=== PATIENT | male | born 1945 | race African-American/Black ===

== ENCOUNTER 2019-03-20 20:12 | Observation (INO) | payer BC, OTHER ==
[~2019-03-20] VITALS: Ht 185.4 cm; Wt 92.0 kg
[~2019-03-20 20:12] MED LIST: AMLO-147 PO; ASPI-535 PO; CANA100T PO; CARV25TA79 PO; HYDR-3601 PO; HYDR12.58 PO; LIPITOR; LISI40TA3 PO; LISINOPRIL; PIOG15TA67 PO; SIMV40TA2 PO; [UNRECOGNIZED DRUG - REMARK]
[2019-03-20] MEDS ORDERED: SOD CHLORIDE 0.9% 1,000 ML IV STA (20:50)
[2019-03-20] MEDS ORDERED: KETOROLAC 15 MG INJ IV STA (20:50)
--- NOTE | 2019-03-20 20:52 | ERD ---
ER Documentation Chief Complaint Chief Complaint BILATERAL PAIN; NO KNOWN INJ X5DAYS HPI 73-year-old man with a history of CAD status post CABG many years ago presents with exertional upper back pain and dyspnea for the last 3 days. He states he has no pain in the chest and no pain with upper extremity movement or when he is laying down, pain only precipitated with exertion. He denies fevers or chills, no cough, no headache or blurry vision. Patient states he used a "handful" of aspirin today due to the pain. ROS All systems reviewed and are negative except as per history of present illness. Medications Home Meds Reported Medications [Lipitor] No Conflict Check 07/25/09 [Unk Antidiagetic] No Conflict Check 07/25/09 [Lisinopril] No Conflict Check 07/25/09 Allergies Allergies: Coded Allergies: No Known Allergy (Verified Allergy, Mild, 07/25/09) PMhx/Soc CAD status post CABG, hypertension, diabetes mellitus History of Surgery: Yes (CABG 2009) Anesthesia Reaction: No Hx Neurological Disorder: No Hx Respiratory Disorders: No Hx Cardiac Disorders: Yes (htn, hyperlipidemia, ) Hx Psychiatric Problems: No Hx Miscellaneous Medical Probl: No Hx Alcohol Use: No Hx Substance Use: No Hx Tobacco Use: No Smoking Status: Never smoker FmHx Family History: No diabetes Physical Exam Vitals Vital Signs Date Temp Pulse Resp B/P (MAP) Pulse Ox O2 O2 Flow FiO2 Time Delivery Rate 03/20/19 74 15 105/78 97 Room Air 21:59 (87) 03/20/19 98.2 74 19 110/79 97 Room Air 20:34 (89) 03/20/19 98.2 82 19 95/112 93 20:16 (106) Physical Exam GENERAL: Well-developed, well-nourished, well-hydrated, in no apparent distress, looks nontoxic in appearance HEENT: Moist mucous membranes, pink conjunctiva, no cervical spine tenderness or step-off deformities, no goiter, no jaundice or icterus, extraocular movements intact without pain. No submandibular induration, and no pharyngeal erythema NEURO: Alert and oriented 3, cranial nerves II through XII intact bilaterally, pupils equal round reactive to light, no focal deficits or facial asymmetry, sensation intact distally Strength 5/5 in upper and lower extremities bilater ally CARDIAC: Regular rate and rhythm, no murmurs rubs or gallops LUNGS: Clear bilaterally no wheezing crackles or stridor ABDOMEN: Soft nontender, no guarding, no rigidity, no rebound, no psoas sign no obturator sign. Normoactive bowel sounds SKIN: Warm and dry to touch, no abrasions, contusions, or hematomas, no lacerations, no ecchymosis, no target lesions, and without ulcers EXTREMITIES: No clubbing cyanosis or edema, calves are bilaterally symmetrical, no Homans sign, no popliteal cord sign. Distal pulses equal and bilateral PSYCH: Normal affect without agitation or irritability Result Diagram: 03/20/19205603/20/192056 Results 24 hrs Laboratory Tests Test 03/20/19 20:57 White Blood Count 7.8 10^3/ul Red Blood Count 4.75 10^6/ul Hemoglobin 14.2 g/dl Hematocrit 42.8 % Mean Corpuscular Volume 90.1 fl Mean Corpuscular Hemoglobin 29.9 pg Mean Corpuscular Hemoglobin Concent 33.2 g/dl Red Cell Distribution Width 14.6 % Platelet Count 210 10^3/UL Mean Platelet Volume 10.6 fl Immature Granulocytes % 0.600 % Neutrophils % 68.8 % Lymphocytes % 17.2 % Monocytes % 9.7 % Eosinophils % 3.3 % Basophils % 0.4 % Nucleated Red Blood Cells % 0.0 /100WBC Immature Granulocytes # 0.050 10^3/ul Neutrophils # 5.4 10^3/ul Lymphocytes # 1.3 10^3/ul Monocytes # 0.8 10^3/ul Eosinophils # 0.3 10^3/ul Basophils # 0.0 10^3/ul Nucleated Red Blood Cells # 0.0 10^3/ul Prothrombin Time 12.6 Sec Prothrombin Time Ratio 1.0 INR International Normalized Ratio 0.93 Activated Partial Thromboplast Time 31.2 Sec Sodium Level 136 mmol/L Potassium Level 3.7 mmol/L Chloride Level 98 mmol/L Carbon Dioxide Level 25 mmol/L Anion Gap 13 Blood Urea Nitrogen 21 mg/dl Creatinine 1.25 mg/dl Est Glomerular Filtrat Rate mL/min mL/min Glucose Level 178 mg/dl Calcium Level 9.3 mg/dl Total Bilirubin 0.3 mg/dl Direct Bilirubin 0.00 mg/dl Indirect Bilirubin 0.3 mg/dl Aspartate Amino Transf (AST/SGOT) 32 IU/L Alanine Aminotransferase (ALT/SGPT) 28 IU/L Alkaline Phosphatase 40 IU/L Troponin I < 0.012 ng/ml Total Protein 7.9 g/dl Albumin 4.4 g/dl Globulin 3.50 g/dl Albumin/Globulin Ratio 1.25 Lipase 185 U/L Current Medications Medications Dose Sig/Jet Start Time Status Last (Trade) Ordered Route PRN Stop Time Admin Dose Reason Admin Sodium 1,000 ml @ Q1H STAT 03/20/19 DC 03/20/19 Chloride 1,000 mls/hr IV 20:50 21:37 03/20/19 21:49 Ketorolac 15 mg ONCE STAT 03/20/19 DC 03/20/19 Tromethamine IV 20:50 21:39 (Toradol) 03/20/19 20:51 Aspirin 162 mg ONCE ONCE 03/20/19 DC (Aspirin) PO 22:00 03/20/19 22:01 Procedures/MDM IV line was established patient was placed on cardiac nurse specialist rhythm strip revealed a sinus rhythm at about 80 bpm with upright P and T waves. Patient was afebrile Administered 1 L normal saline IV and Toradol 15mg IV EKG performed, read by me revealed a normal sinus rhythm 80 bpm, left axis gianni ation, narrow QRS complex, no concerning ST elevations or depressions noted 1 view chest x-ray performed, read by me reveals cardiomegaly and sternotomy wires, no acute infiltrates, no pneumothorax. CBC was normal, electrolytes unremarkable, liver function test normal, troponin negative Patient was admitted to telemetry setting under Dr. Clark Departure Diagnosis: Primary Impression: Atypical chest pain Condition: JOSE Borrego MD Mar 20, 2019 20:52
[2019-03-20] MEDS ORDERED: ASPIRIN 81 MG TAB PO ONE (22:00)
[2019-03-20] MEDS ORDERED: DEXTROSE 50% 50 ML SYRINGE IV PRN ×2 (23:30)
[2019-03-20] MEDS ORDERED: GLUCOSE GEL 15 GRAM TUBE BUCCAL PRN (23:30)
[2019-03-20] MEDS ORDERED: GLUCOSE GEL 15 GRAM TUBE PO PRN ×2 (23:30)
[2019-03-20] MEDS ORDERED: GLUCAGON 1 MG INJ IM PRN (23:30)
[2019-03-21] MEDS ORDERED: ONDANSETRON 4 MG INJ IV STA (02:44)
[2019-03-21] MEDS ORDERED: morphine 4 MG/ML VIAL IV STA (02:44)
[2019-03-21] MEDS: INSULIN ASPART [NOVOLOG] 3 ML PEN SC SCH ×4 (07:55→21:00)
[2019-03-21] MEDS ORDERED: morphine 2 MG INJ IV STA (08:18)
[2019-03-21 08:22] VITALS: BP 152/99; PULSE 62; RESP 18
[2019-03-21] MEDS ORDERED: ACETAMINOPHEN 325 MG TAB PO PRN (08:30)
[2019-03-21] MEDS: HYDROCHLOROTHIAZIDE 12.5 MG CAP PO SCH (09:40)
[2019-03-21] MEDS: LISINOPRIL 20 MG TAB PO SCH (09:41)
[2019-03-21] MEDS: ASPIRIN (EC) 81 MG TAB PO SCH (09:41)
[2019-03-21 09:55] VITALS: Ht 185.4 cm; Wt 92.0 kg
[2019-03-21] MEDS: HYDROCODONE/APAP (5/325) TAB PO PRN ×3 (10:09→23:36)
[2019-03-21 11:39] VITALS: BP 119/81; PULSE 64; RESP 19
[2019-03-21] MEDS: PIOGLITAZONE 15 MG TAB PO SCH (13:14)
--- NOTE | 2019-03-21 13:59 | HP ---
Date/Time of Note Date/Time of Note DATE: 03/21/19 TIME: 13:51 Assessment/Plan VTE Prophylaxis SCD applied (from Nsg): Yes Pharmacological prophylaxis: LMWH Lines/Catheters IV Catheter Type (from Nrsg): Peripheral IV Assessment/Plan Assessment/Plan -Atypical chest pain, rule out acute coronary syndromes will obtain cardiac enzymes every 6 hours x3. Continue aspirin nitroglycerin and morphine PRN for pain. Dr. Julian is asked to see patient in cardiology consultation. -Coronary artery disease status post CABG 9 years ago -Hyperlipidemia, continue statin, will obtain lipid panel. -Diabetes mellitus type 2 Further recommendations based on clinical course. Plan of care discussed with Dr. Clark. Result Diagram: 03/20/19205603/20/192056 Results 24hrs Laboratory Tests Test 03/20/19 20:57 03/21/19 05:29 03/21/19 08:01 03/21/19 12:05 White Blood Count 7.8 Red Blood Count 4.75 Hemoglobin 14.2 Hematocrit 42.8 Mean Corpuscular 90.1 Volume Mean Corpuscular 29.9 Hemoglobin Mean Corpuscular 33.2 Hemoglobin Concent Red Cell 14.6 H Distribution Width Platelet Count 210 Mean Platelet Volume 10.6 H Immature 0.600 H Granulocytes % Neutrophils % 68.8 Lymphocytes % 17.2 Monocytes % 9.7 Eosinophils % 3.3 Basophils % 0.4 Nucleated Red Blood 0.0 Cells % Immature 0.050 H Granulocytes # Neutrophils # 5.4 Lymphocytes # 1.3 Monocytes # 0.8 Eosinophils # 0.3 Basophils # 0.0 Nucleated Red Blood 0.0 Cells # Prothrombin Time 12.6 Prothrombin Time 1.0 Ratio INR International 0.93 Normalized Ratio Activated 31.2 Partial Thromboplast Time Sodium Level 136 Potassium Level 3.7 Chloride Level 98 Carbon Dioxide Level 25 Anion Gap 13 Blood Urea Nitrogen 21 H Creatinine 1.25 H Est Glomerular Filtrat Rate mL/min Glucose Level 178 Calcium Level 9.3 Total Bilirubin 0.3 Direct Bilirubin 0.00 Indirect Bilirubin 0.3 Aspartate Amino 32 Transf (AST/SGOT) Alanine 28 Aminotransferase (AL T/SGPT) Alkaline Phosphatase 40 L Troponin I < 0.012 < 0.012 < 0.012 Total Protein 7.9 Albumin 4.4 Globulin 3.50 H Albumin/Globulin 1.25 Ratio Lipase 185 Salicylates Level 1.3 L Triglycerides Level 135 Cholesterol Level 154 LDL Cholesterol, 89 Calculated HDL Cholesterol 38 Cholesterol/HDL 4.0 Ratio Thyroid Stimulating 1.900 Hormone (TSH) Bedside Glucose 90 Test 03/21/19 12:07 Bedside Glucose 135 HPI/ROS Admit Date/Time Admit Date/Time Mar 20, 2019 at 21:50 Hx of Present Illness The patient is a 73-year-old very pleasant male with history of coronary artery disease status post CABG 9 years ago, hypertension, hyperlipidemia and diabetes. Patient presented to the emergency room with complaints of significant upper back pain with radiation to the shoulders and dyspnea for the last couple of days. Patient denies any fever chills denies any headache denies blurry vision denies cough. Patient stated he has been compliant with his medication. Patient will be admitted for further evaluation and management to telemetry floor. ROS 12 point review of system is negative except for what mentioned in HPI PMH/Family/Social Past Medical History Medical History: coronary artery disease, diabetes, high cholesterol Medications Current Medications Aspirin (Halfprin) 81 mg DAILY PO Last administered on 03/21/19at 09:41; Admin Dose 81 MG; Start 03/21/19 at 09:00 Carvedilol (Coreg) 25 mg BID PO Last administered on 03/21/19at 09:42; Admin Dose 25 MG; Start 03/21/19 at 09:00 Hydrochlorothiazide (Hydrochlorothiazide) 12.5 mg DAILY PO Last administered on 03/21/19 09:40; Admin Dose 12.5 MG; Start 03/21/19 at 09:00 Lisinopril (Zestril) 40 mg DAILY PO Last administered on 03/21/19at 09:41; Admin Dose 40 MG; Start 03/21/19 at 09:00 Pioglitazone HCl (Actos) 15 mg DAILY PO Last administered on 03/21/19at 13:14; Admin Dose 15 MG; Start 03/21/19 at 09:00 Insulin Aspart (Novolog Insulin Pen) NOVOLOG *MILD* ALGORITHM WITH MEALS BEDTIME SC ; Start 03/21/19 at 07:55 Miscellaneous Information 1 ea NOTE XX ; Start 03/20/19 at 23:30 Glucose (Glutose) 15 gm Q15M PRN PO DECREASED GLUCOSE; Start 03/20/19 at 23:30 Glucose (Glutose) 22.5 gm Q15M PRN PO DECREASED GLUCOSE; Start 03/20/19 at 23:30 Dextrose (D50w Syringe) 25 ml Q15M PRN IV DECREASED GLUCOSE; Start 03/20/19 at 23:30 Dextrose (D50w Syringe) 50 ml Q15M PRN IV DECREASED GLUCOSE; Start 03/20/19 at 23:30 Glucagon (Glucagen) 1 mg Q15M PRN IM DECREASED GLUCOSE; Start 03/20/19 at 23:30 Glucose (Glutose) 15 gm Q15M PRN BUCCAL DECREASED GLUCOSE; Start 03/20/19 at 23:30 Atorvastatin Calcium (Lipitor) 20 mg HS PO ; Start 03/21/19 at 21:00 Acetaminophen/ Hydrocodone Bitart ([place] (5/325)) 1 tab Q6H PRN PO MODERATE PAIN LEVEL 4-6 Last administered on 03/21/19at 10:09; Admin Dose 1 TAB; Start 03/21/19 at 08:30 Acetaminophen (Tylenol Tab) 650 mg Q6H PRN PO MILD PAIN(1-3)OR ELEVATED TEMP; Start 03/21/19 at 08:30 Coded Allergies: No Known Allergy (Unverified , 03/20/19) Past Surgical History Past Surgical Hx: other (Status post CABG 9 years ago) Social History Alcohol Use: none Smoking Status: Never smoker Drug Use: none Exam/Review of Systems Vital Signs Vitals Vital Signs Date Temp Pulse Resp B/P (MAP) Pulse Ox O2 O2 Flow FiO2 Time Delivery Rate 03/21/19 98.5 64 19 119/81 94 11:39 (94) 03/21/19 Room Air 07:35 Exam Constitutional: alert, oriented Head: normocephalic Neck: supple Respiratory: clear to auscultation Cardiovascular: regular rate and rhythm Gastrointestinal: soft, non-tender Musculoskeletal: nl extremities to inspection Extremities: normal pulses Neurological: nl mental status Skin: nl REGINO Trujillo Mar 21, 2019 13:59
[2019-03-21 15:30] VITALS: BP 124/80; PULSE 55; RESP 18
--- NOTE | 2019-03-21 17:04 | CONS ---
Assessment/Plan Assessment/Plan Hospital Course (Demo Recall) Neck, shoulder and back pain CAD with history of CABG Diabetes Hypertension Dyslipidemia Patient with pain with head movements and arm movements. Pain is in the neck, shoulder and back region. Pain is exacerbated by palpation. ECG with no significant ischemic abnormalities, serial cardiac enzymes are negative, echocardiogram pending. Symptoms do not appear cardiac in etiology at the current time. Likely musculoskeletal. If no significant abnormalities on echocardiogram, no further inpatient cardiac work-up needed at the current time. Consultation Date/Type/Reason Admit Date/Time Mar 20, 2019 at 21:50 Type of Consult Cardiology Reason for Consultation Neck and back pain Date/Time of Note DATE: 03/21/19 TIME: 17:00 Hx of Present Illness This is a 73-year-old male with past medical history of CAD status post CABG in 2010, hypertension, diabetes who presents with neck, shoulder and back pain. Symptoms began approximate 4 to 5 days ago. Pain is worse with arm movements and neck movements. Denies exertional chest pain, shortness of breath, palpitations or dizziness. Pain is also worse with palpation of his neck. Pain has improved with pain medications given. 12 point review of systems was performed with all pertinent positives and negatives mentioned above and all else is negative Past Medical History Medical History: coronary artery disease, diabetes, hypertension Home Meds Reported Medications Lisinopril* (Lisinopril*) 40 Mg Tablet, 40 MG PO DAILY, #30 TAB 03/20/19 Canagliflozin (Invokana) 100 Mg Tablet, 100 MG PO DAILY, TAB 03/20/19 Amlodipine Besylate* (Amlodipine Besylate*) 10 Mg Tablet, 10 MG PO DAILY, #30 TAB 03/20/19 Carvedilol* (Carvedilol*) 25 Mg Tablet, 25 MG PO BID, #60 TAB 03/20/19 Pioglitazone Hcl* (Pioglitazone Hcl*) 15 Mg Tablet, 15 MG PO DAILY, TAB 03/20/19 Simvastatin* (Zocor*) 40 Mg Tablet, 40 MG PO QHS, #30 TAB 03/20/19 Hydrochlorothiazide* (Hydrochlorothiazide*) 12.5 Mg Tablet, 12.5 MG PO DAILY, #30 TAB 03/20/19 Aspirin Ec (Aspir 81) 81 Mg Tablet.dr, 81 MG PO DAILY, #30 TAB 03/20/19 Discontinued Reported Medications [Lipitor] No Conflict Check 07/25/09 [Unk Antidiagetic] No Conflict Check 07/25/09 [Lisinopril] No Conflict Check 07/25/09 Medications Current Medications Aspirin (Halfprin) 81 mg DAILY PO Last administered on 03/21/19at 09:41; Admin Dose 81 MG; Start 03/21/19 at 09:00 Carvedilol (Coreg) 25 mg BID PO Last administered on 03/21/19at 09:42; Admin Dose 25 MG; Start 03/21/19 at 09:00 Hydrochlorothiazide (Hydrochlorothiazide) 12.5 mg DAILY PO Last administered on 03/21/19at 09:40; Admin Dose 12.5 MG; Start 03/21/19 at 09:00 Lisinopril (Zestril) 40 mg DAILY PO Last administered on 03/21/19at 09:41; Admin Dose 40 MG; Start 03/21/19 at 09:00 Pioglitazone HCl (Actos) 15 mg DAILY PO Last administered on 03/21/19at 13:14; Admin Dose 15 MG; Start 03/21/19 at 09:00 Insulin Aspart (Novolog Insulin Pen) NOVOLOG *MILD* ALGORITHM WITH MEALS BEDTIME SC ; Start 03/21/19 at 07:55 Miscellaneous Information 1 ea NOTE XX ; Start 03/20/19 at 23:30 Glucose (Glutose) 15 gm Q15M PRN PO DECREASED GLUCOSE; Start 03/20/19 at 23:30 Glucose (Glutose) 22.5 gm Q15M PRN PO DECREASED GLUCOSE; Start 03/20/19 at 23:30 Dextrose (D50w Syringe) 25 ml Q15M PRN IV DECREASED GLUCOSE; Start 03/20/19 at 23:30 Dextrose (D50w Syringe) 50 ml Q15M PRN IV DECREASED GLUCOSE; Start 03/20/19 at 23:30 Glucagon (Glucagen) 1 mg Q15M PRN IM DECREASED GLUCOSE; Start 03/20/19 at 23:30 Glucose (Glutose) 15 gm Q15M PRN BUCCAL DECREASED GLUCOSE; Start 03/20/19 at 23:30 Atorvastatin Calcium (Lipitor) 20 mg HS PO ; Start 03/21/19 at 21:00 Acetaminophen/ Hydrocodone Bitart ([place] (5/325)) 1 tab Q6H PRN PO MODERATE PAIN LEVEL 4-6 Last administered on 03/21/19at 10:09; Admin Dose 1 TAB; Start 03/21/19 at 08:30 Acetaminophen (Tylenol Tab) 650 mg Q6H PRN PO MILD PAIN(1-3)OR ELEVATED TEMP; Start 03/21/19 at 08:30 Allergies: Coded Allergies: No Known Allergy (Unverified , 03/20/19) Past Surgical History Past Surgical Hx: coronary bypass surgery, other (Status post CABG 9 years ago) Family History Significant Family History: no pertinent family hx Social History Alcohol Use: none Smoking Status: Never smoker Drug Use: none Exam/Review of Systems Vital Signs Vitals Vital Signs Date Temp Pulse Resp B/P (MAP) Pulse Ox O2 O2 Flow FiO2 Time Delivery Rate 03/21/19 98.6 55 18 124/80 93 15:30 (95) 03/21/19 Room Air 07:35 Exam Constitutional: alert, oriented, well developed Head: normocephalic Neck: other (Pain with palpation of paracervical muscles, more so on the left side) Respiratory: clear to auscultation, normal air movement Cardiovascular: regular rate and rhythm (S1-S2 heard) Gastrointestinal: soft, non-tender, bowel sounds Musculoskeletal: other (Pain with palpation of left shoulder region and posterior scapular region) Extremities: edema (No) Labs Result Diagram: 03/20/19205603/20/192056 Results 24hrs Laboratory Tests Test 03/20/19 20:57 03/21/19 05:29 03/21/19 08:01 03/21/19 12:05 White Blood Count 7.8 Red Blood Count 4.75 Hemoglobin 14.2 Hematocrit 42.8 Mean Corpuscular 90.1 Volume Mean Corpuscular 29.9 Hemoglobin Mean Corpuscular 33.2 Hemoglobin Concent Red Cell 14.6 H Distribution Width Platelet Count 210 Mean Platelet Volume 10.6 H Immature 0.600 H Granulocytes % Neutrophils % 68.8 Lymphocytes % 17.2 Monocytes % 9.7 Eosinophils % 3.3 Basophils % 0.4 Nucleated Red Blood 0.0 Cells % Immature 0.050 H Granulocytes # Neutrophils # 5.4 Lymphocytes # 1.3 Monocytes # 0.8 Eosinophils # 0.3 Basophils # 0.0 Nucleated Red Blood 0.0 Cells # Prothrombin Time 12.6 Prothrombin Time 1.0 Ratio INR International 0.93 Normalized Ratio Activated 31.2 Partial Thromboplast Time Sodium Level 136 Potassium Level 3.7 Chloride Level 98 Carbon Dioxide Level 25 Anion Gap 13 Blood Urea Nitrogen 21 H Creatinine 1.25 H Est Glomerular Filtrat Rate mL/min Glucose Level 178 Calcium Level 9.3 Total Bilirubin 0.3 Direct Bilirubin 0.00 Indirect Bilirubin 0.3 Aspartate Amino 32 Transf (AST/SGOT) Alanine 28 Aminotransferase (AL T/SGPT) Alkaline Phosphatase 40 L Troponin I < 0.012 < 0.012 < 0.012 Total Protein 7.9 Albumin 4.4 Globulin 3.50 H Albumin/Globulin 1.25 Ratio Lipase 185 Salicylates Level 1.3 L Triglycerides Level 135 Cholesterol Level 154 LDL Cholesterol, 89 Calculated HDL Cholesterol 38 Cholesterol/HDL 4.0 Ratio Thyroid Stimulating 1.900 Hormone (TSH) Bedside Glucose 90 Test 03/21/19 12:07 Bedside Glucose 135 Imaging Imaging ECG sinus rhythm at 80 bpm, QRS 82 ms, nonspecific ST abnormalities Medications Medications Current Medications Aspirin (Halfprin) 81 mg DAILY PO Last administered on 03/21/19at 09:41; Admin Dose 81 MG; Start 03/21/19 at 09:00 Carvedilol (Coreg) 25 mg BID PO Last administered on 03/21/19at 09:42; Admin Dose 25 MG; Start 03/21/19 at 09:00 Hydrochlorothiazide (Hydrochlorothiazide) 12.5 mg DAILY PO Last administered on 03/21/19at 09:40; Admin Dose 12.5 MG; Start 03/21/19 at 09:00 Lisinopril (Zestril) 40 mg DAILY PO Last administered on 03/21/19at 09:41; Admin Dose 40 MG; Start 03/21/19 at 09:00 Pioglitazone HCl (Actos) 15 mg DAILY PO Last administered on 03/21/19at 13:14; Admin Dose 15 MG; Start 03/21/19 at 09:00 Insulin Aspart (Novolog Insulin Pen) NOVOLOG *MILD* ALGORITHM WITH MEALS BEDTIME SC ; Start 03/21/19 at 07:55 Miscellaneous Information 1 ea NOTE XX ; Start 03/20/19 at 23:30 Glucose (Glutose) 15 gm Q15M PRN PO DECREASED GLUCOSE; Start 03/20/19 at 23:30 Glucose (Glutose) 22.5 gm Q15M PRN PO DECREASED GLUCOSE; Start 03/20/19 at 23:30 Dextrose (D50w Syringe) 25 ml Q15M PRN IV DECREASED GLUCOSE; Start 03/20/19 at 23:30 Dextrose (D50w Syringe) 50 ml Q15M PRN IV DECREASED GLUCOSE; Start 03/20/19 at 23:30 Glucagon (Glucagen) 1 mg Q15M PRN IM DECREASED GLUCOSE; Start 03/20/19 at 23:30 Glucose (Glutose) 15 gm Q15M PRN BUCCAL DECREASED GLUCOSE; Start 03/20/19 at 23:30 Atorvastatin Calcium (Lipitor) 20 mg HS PO ; Start 03/21/19 at 21:00 Acetaminophen/ Hydrocodone Bitart ([place] (5/325)) 1 tab Q6H PRN PO MODERATE PAIN LEVEL 4-6 Last administered on 03/21/19at 10:09; Admin Dose 1 TAB; Start at 08:30 Acetaminophen (Tylenol Tab) 650 mg Q6H PRN PO MILD PAIN(1-3)OR ELEVATED TEMP; Start 03/21/19 at 08:30 Tavo Julian DO Mar 21, 2019 17:04
--- NOTE | 2019-03-21 17:24 | RADRPT ---
Echocardiogram Report Patient Name: NIKHIL BRITOPatient ID: [id number] : 1945 (73y 8m)Study Date: 03/21/2019 7:59:40 AM Gender: MAccession #: [id number] Tech: Bowen Baez [facility] Location: 531 Ref.Physician: AUDREY MASSEY Height(Cm): BSA: Weight(Kg): Quality: AdequateOrder Physician: AUDREY MASSEY Account #: Procedures: Echocardiographic Report: Transthoracic echocardiogram with complete 2D, M-Mode, and doppler examination. Indications: Atypical Chest Pain. Measurements: 2D/M Mode Doppler Measurement Value Normal Range Measurement Value Normal Range LVIDd 2D 4.5 [ 4.2 - 5.8 ] cm AV Peak Stephan 1.3 [ 100.0 - 170.0 ] cm/sec LVIDs 2D 2.4 [ 2.5 - 4.0 ] cm AV Peak PG 7.0 [ 2.0 - 9.0 ] mmHg LVPWd 2D 1.1 [ 0.6 - 1.0 ] cm LVOT Peak Stephan 1.1 [ 70.0 - 110.0 ] cm/sec IVSd 2D 1.1 [ 0.6 - 1.0 ] cm LVOT Peak PG 5.0 [ 2.0 - 6.0 ] mmHg IVS/LVPW 2D 1.0 ratio MV E Peak Stephan 1.0 [ 60.0 - 130.0 ] cm/sec AoR Diam 2D 2.9 [ 2.6 - 3.4 ] cm MV A Peak Stephan 0.7 [ 100.0 - 120.0 ] cm/sec LA/Ao 2D 1 ratio MV E/A 1.4 [ 0.8 - 1.5 ] ratio LA Dimen 2D 3.7 [ 3.0 - 4.0 ] cm MV Decel Time 137 [ 104 - 258 ] msec MV E/A 1.4 [ 0.8 - 1.5 ] ratio TR Peak Stephan 3.4 [ 100.0 - 280.0 ] cm/sec TR Peak PG 46.0 mmHg RVSP 49.0 [ 10.0 - 36.0 ] mmHg RA Pressure 3.0 mmHg Findings: Left Ventricle: Normal left ventricular systolic function. Normal left ventricular cavity size. Mild concentric left ventricular hypertrophy. Ejection fraction is visually estimated at 65 %. Tissue Doppler/Mitral Doppler indices are consistent with pseudonormalization with mildly elevated left atrial pressure (Stage II diastolic dysfunction). Right Ventricle: Normal right ventricular size. Normal right ventricular systolic function. Left Atrium: The left atrium is normal in size. Right Atrium: The right atrium is normal in size. Mitral Valve: Normal appearance of the mitral valve. Mild mitral leaflet calcification. Mild mitral valve regurgitation. Aortic Valve: Normal appearance of the aortic valve. No significant aortic stenosis or insufficiency. Tricuspid Valve: Normal appearance of the tricuspid valve. The estimated Peak RVSP is 49 mmHg. There is moderate tricuspid regurgitation. Pulmonic Valve: Normal pulmonic valve appearance. Pericardium: Normal pericardium with no significant pericardial effusion. Aorta: Normal aortic root. IVC: Normal size and normal respiratory collapse consistent with normal right atrial pressure. Conclusions: Normal left ventricular systolic function. Normal left ventricular cavity size. Mild concentric left ventricular hypertrophy. Ejection fraction is visually estimated at 65 %. Tissue Doppler/Mitral Doppler indices are consistent with pseudonormalization with mildly elevated left atrial pressure (Stage II diastolic dysfunction). Normal right ventricular size. Normal right ventricular systolic function. Mild mitral valve regurgitation. No significant aortic stenosis or insufficiency. The estimated Peak RVSP is 49 mmHg. There is moderate tricuspid regurgitation. Normal pericardium with no significant pericardial effusion. Electronically Signed By: Tavo Julian 2019-03-21 17:23:12 PDT
[2019-03-21 20:00] VITALS: BP 159/94; PULSE 60; RESP 19
[2019-03-21] MEDS ORDERED: NON-FORMULARY/PATIENT OWN MED (Simvastatin* (Zocor*) 40 MG) PO SCH (21:00)
[2019-03-21] MEDS ORDERED: ATORVASTATIN 20 MG TAB PO SCH (21:00)
[2019-03-21 23:41] VITALS: BP 107/72; PULSE 60; RESP 18
[2019-03-22 00:31] VITALS: BP 151/91; PULSE 57; RESP 18
[2019-03-22] MEDS: morphine 2 MG INJ IV PRN ×2 (04:08→08:51)
[2019-03-22] MEDS: HYDROCODONE/APAP (5/325) TAB PO PRN (06:16)
[2019-03-22 07:16] VITALS: BP 145/94; PULSE 58; RESP 20
[2019-03-22] MEDS: LISINOPRIL 20 MG TAB PO SCH (08:42)
[2019-03-22] MEDS: HYDROCHLOROTHIAZIDE 12.5 MG CAP PO SCH (08:43)
[2019-03-22] MEDS: PIOGLITAZONE 15 MG TAB PO SCH (08:48)
[2019-03-22] MEDS: INSULIN ASPART [NOVOLOG] 3 ML PEN SC SCH ×3 (08:50→17:55)
[2019-03-22] MEDS: ASPIRIN (EC) 81 MG TAB PO SCH (08:51)
--- NOTE | 2019-03-22 12:35 | DS ---
Date/Time of Note Date/Time of Note DATE: 03/22/19 TIME: 12:34 Discharge Summary Admission/Discharge Info Admit Date/Time Mar 20, 2019 at 21:50 Discharge Date/Time Discharge Diagnosis -Atypical chest pain -ACS ruled out, likely PAUL -Coronary artery disease status post CABG 9 years ago -Hyperlipidemia, -Diabetes mellitus type 2 . Patient Condition: Stable Consults cardiology: Iesha . Hospital Course 73-year-old male who had presented to the emergency room yesterday with upper back pain in his posterior neck and bilateral shoulders with a history of coronary artery bypass surgery about 10 years ago. He was admitted for concerns for ACS rule out. He has ruled out with 3- troponin. He also has a history of diabetes mellitus. Hemoglobin A1c was 6.7. At this time he is doing much better, the pain is resolved. He was seen by cardiology and has been cleared for discharge at this time. Patient did note that he has had similar symptoms in the past on the setting kind of anticholesterol medication, but he does not recall the name. He states that his primary care doctor switched to a different one and he seemed to do well with that, but he noted that of recent he has been switched back to the prior one. Unfortunately since he does not know the names it is hard to make any adjustments to his regimen. Cardiology does recommend that he remain on the statin now except absolutely necessary to try and prevent any progression of coronary artery disease. Hence he will be set up with home health for nursing to review his home medications with him and communicate consents to primary care doctor for further adjustment. He verbalized understanding and agreement with this plan. He is stable for discharge at this time. . Home Meds Reported Medications Lisinopril* (Lisinopril*) 40 Mg Tablet, 40 MG PO DAILY, #30 TAB 03/20/19 Canagliflozin (Invokana) 100 Mg Tablet, 100 MG PO DAILY, TAB 03/20/19 Amlodipine Besylate* (Amlodipine Besylate*) 10 Mg Tablet, 10 MG PO DAILY, #30 TAB 03/20/19 Carvedilol* (Carvedilol*) 25 Mg Tablet, 25 MG PO BID, #60 TAB 03/20/19 Pioglitazone Hcl* (Pioglitazone Hcl*) 15 Mg Tablet, 15 MG PO DAILY, TAB 03/20/19 Simvastatin* (Zocor*) 40 Mg Tablet, 40 MG PO QHS, #30 TAB 03/20/19 Hydrochlorothiazide* (Hydrochlorothiazide*) 12.5 Mg Tablet, 12.5 MG PO DAILY, #30 TAB 03/20/19 Aspirin Ec (Aspir 81) 81 Mg Tablet.dr, 81 MG PO DAILY, #30 TAB 03/20/19 Discontinued Reported Medications [Lipitor] No Conflict Check 07/25/09 [Unk Antidiagetic] No Conflict Check 07/25/09 [Lisinopril] No Conflict Check 07/25/09 Primary Care Provider Not On Staff Doctor Time spent on discharge: > 30 minutes Pending Labs Laboratory Tests Test 03/21/19 17:17 03/21/19 21:24 03/22/19 05:10 03/22/19 08:28 Bedside 119 128 148 Glucose mg/dL (70-220) mg/dL (70-220) mg/dL (70-220) Hemoglobin A1c 6.7 % (0-5.9) Triglycerides 174 Level mg/dl (0-149) Cholesterol 170 Level mg/dl (100-200 ) LDL 97 mg/dl Cholesterol, Calculated HDL 38 Cholesterol mg/dl (31-75) Cholesterol/HDL 4.4 RATIO Ratio Thyroid 2.960 Stimulating MIU/L (0.465-4 Hormone (TSH) .680) ASHLEY LOVETT Mar 22, 2019 12:35
--- NOTE | 2019-03-22 12:36 | PDOCDIS ---
Discharge Instructions DIAGNOSIS Discharge Diagnosis CONDITION [id number] Patient Condition: [id number] Stable ACTIVITY: [id number] Activity Restrictions: [id number] Slowly Increase Activity Rest between Activity FOLLOW UP/APPOINTMENTS Follow-up Plan Followup with your primary doctor within the next 1-2 weeks. If you don't have one please let someone know, we can give you resources that may help you pick one. You may call Dr Manjeet Clark's office. he's accepting new patients Name, Degree: Manjeet Clark MD Specialty: Internal Medicine Comments: Office Address: [address] [place] [address] [place], [place] [id number] Office Office You may also call your insurance company to assign one to you. Review your medication list with your nurse before leaving and if you need new prescriptions please let your nurse know. I may have made changes to your home medications or given you new prescriptions, please let your primary doctor know as well. Stay compliant with your medications and report any side effects to your PCP or pharmacist. Return to the ER if you have any concerns and cannot reach your doctors or call your insurance company, they usually have a nurse that can help you. ASHLEY LOVETT Mar 22, 2019 12:36
[2019-03-22 14:59] VITALS: BP 138/91; PULSE 64; RESP 19
== END 2019-03-22 18:50 | disposition home health service (06) ==
LOC: E/R 20:12 → TEL 21:50 → MS1 03-22 00:05
PROVIDERS: ADMIT Internal Medicine; ATTEND Family Medicine
DX: R07.89 Other chest pain (principal); I25.10 Atherosclerotic heart disease of native coronary artery without angina pectoris; Z95.1 Presence of aortocoronary bypass graft; I10 Essential (primary) hypertension; E11.9 Type 2 diabetes mellitus without complications; E78.5 Hyperlipidemia, unspecified; Z79.82 Long term (current) use of aspirin; Z79.02 Long term (current) use of antithrombotics/antiplatelets
CPT/HCPCS: 36415; 71045; 71250; 80053; 80061; 80307; 82550; 82962; 83036; 83690; 83735; 84443; 84484; 85025; 85610; 85730; 93005; 93306; 96374; 99285; G0378; J1815; J1885; J2270; J2405; J7030; 99217